=== PATIENT | male | born 1960 | race Two or more races ===

== ENCOUNTER 2019-10-01 14:14 | Day surgery (SDC) | payer MEDICAID ==
[2019-10-01] VITALS (7 sets, daily range): BP systolic 121–134; BP diastolic 53–87
[~2019-10-01] VITALS: Ht 180.3 cm; Wt 97.7 kg
[~2019-10-01 14:14] MED LIST: GABA-532 PO; METO-384 PO; NOR5T PO; OXYC-145 PO
[2019-10-01] MEDS ORDERED: ceFAZolin 2gm in dextrose, iso 50 ML IV ONE (14:35)
[2019-10-01] MEDS ORDERED: normal saline 1000ml 1,000 ML IV SCH (14:35)
[2019-10-01] MEDS ORDERED: SIMV-42 PO (15:03)
[2019-10-01] MEDS ORDERED: AMIT10TA6 PO (15:03)
[2019-10-01] MEDS ORDERED: ASPI81TA52 PO (15:03)
[2019-10-01] MEDS ORDERED: LISI40TA4 PO (15:03)
[2019-10-01] MEDS ORDERED: BACL20TA PO (15:03)
[2019-10-01] MEDS ORDERED: LIDOcaine 1% W/epiNEPHrine 1:100,000 20ml vial ONE ×2 (15:33→16:57)
[2019-10-01] MEDS ORDERED: ceFAZolin 1000mg inj ONE (15:33)
[2019-10-01] MEDS ORDERED: fentaNYL/PF 50MCG/1 ML 2ML syringe ONE ×2 (15:33→16:34)
[2019-10-01] MEDS ORDERED: midazolam 2 mg/2 ml injection ONE ×4 (15:33→16:57)
== END 2019-10-01 19:45 | disposition home or self-care (01) ==
LOC: SSTAY O 14:14
PROVIDERS: ATTEND Internal Medicine Interventional Cardiology
DX: Z45.010 Encounter for checking and testing of cardiac pacemaker pulse generator [battery] (principal); I10 Essential (primary) hypertension; G89.29 Other chronic pain; I44.1 Atrioventricular block, second degree; Z79.899 Other long term (current) drug therapy; Z79.82 Long term (current) use of aspirin
CPT/HCPCS: 33228; 33234; 93005; C1785; C1898; J0690; J2250; J3010; 33216; 99152; 99153; A4565; A4620; A6258

== ENCOUNTER 2021-07-28 11:32 | Day surgery (SDC) | payer MEDICAID ==
[~2021-07-28] VITALS: Ht 180.3 cm; Wt 98.3 kg
[2021-07-28] VITALS (13 sets, daily range): BP systolic 117–184; BP diastolic 72–108
[~2021-07-28 11:32] MED LIST changes: +AMIT10TA6 PO; +ASPI81TA52 PO; +BACL20TA PO; -GABA-532 PO; +LIDOcaine 1% W/epiNEPHrine 1:100,000 20ml vial ONE; +LISI40TA13 PO; -METO-384 PO; -NOR5T PO; +SIMV-42 PO; +ceFAZolin 1000mg inj ONE; +fentaNYL/PF 50MCG/1 ML 2ML syringe ONE; +midazolam 1 mg/ML 2ml injection ONE
[2021-07-28] MEDS ORDERED: OXYC1TAB15 PO (12:20)
[2021-07-28] MEDS ORDERED: CHLO25TA10 PO (12:21)
[2021-07-28] MEDS ORDERED: ATOR20TA PO (12:22)
[2021-07-28] MEDS ORDERED: AMLO5TAB PO (12:22)
[2021-07-28 12:38] LABS: BASOPHILS # (AUTO) 0.1 X10'3 (0-0.2); BASOPHILS % (AUTO) 0.9 % (0-1); EOSINOPHILS # (AUTO) 0.1 X10'3 (0-0.9); EOSINOPHILS % (AUTO) 1.6 % (0-6); HEMATOCRIT 46.3 % (42.0-52.0); HEMOGLOBIN 16.1 g/dl (14.0-17.9); LYMPHOCYTES # (AUTO) 2.6 X10'3 (1.1-4.8); LYMPHOCYTES % (AUTO) 46.2 % (21-51); MEAN CORPUSCULAR HGB CONC 34.9 g/dL (33.0-36.5); MEAN CORPUSCULAR VOLUME 88.9 FL (78-98); MEAN PLATELET VOLUME 8.9 FL (7.4-10.4); MONOCYTES # (AUTO) 0.5 X10'3 (0-0.9); MONOCYTES % (AUTO) 8.8 % (2-12); NEUTROPHILS # (AUTO) 2.4 X10'3 (1.8-7.7); NEUTROPHILS % (AUTO) 42.5 % (42-75); PLATELET COUNT 234 X10'3 (140-440); RED CELL DISTRIBUTION WIDTH 12.7 % (11.5-14.5); WHITE BLOOD COUNT 5.6 X10'3 (4.5-11.0)
[2021-07-28 12:40] LABS: ALBUMIN 3.8 G/DL (3.4-5.0); ANION GAP 5 (8-16); BLOOD UREA NITROGEN 9 MG/DL (7-18); BUN/CREATININE RATIO 9.4 (5.4-32.0); CALCIUM 8.9 MG/DL (8.5-10.1); CHLORIDE 106 MMOL/L (99-107); CREATININE 0.96 MG/DL (0.60-1.10); GLUCOSE 123 MG/DL (70-104); POTASSIUM 4.1 MMOL/L (3.5-5.1); SODIUM 140 MMOL/L (135-145); TOTAL CARBON DIOXIDE 28.7 MMOL/L (24-32); eGFR 80 ML/MIN
[2021-07-28 12:45] LABS: APTT 28 SECONDS (22-32)
[2021-07-28] MEDS ORDERED: normal saline 1000ml 1,000 ML IV SCH (13:25)
[2021-07-28] MEDS ORDERED: ceFAZolin inj. 2,000 MG in dextrose 5%-water 100 ML IV ONE (13:30)
[2021-07-28] MEDS ORDERED: ceFAZolin 1000mg inj ONE (15:23)
[2021-07-28] MEDS ORDERED: HYDROcodone/acetaminophen 5mg/325mg tablet PO PRN (16:55)
[2021-07-28] MEDS ORDERED: HYDROcodone/acetaminophen 10/325mg tab PO PRN (16:55)
[2021-07-28] MEDS ORDERED: LORazepam 1 MG tablet PO PRN (16:55)
== END 2021-07-28 19:30 | disposition home or self-care (01) ==
LOC: SSTAY O 11:32
PROVIDERS: ATTEND Student in an Organized Health Care Education/Training Program
DX: T82.120A Displacement of cardiac electrode, initial encounter (principal); I10 Essential (primary) hypertension; G89.29 Other chronic pain; I05.9 Rheumatic mitral valve disease, unspecified; Z79.899 Other long term (current) drug therapy; Z79.01 Long term (current) use of anticoagulants; Y83.8 Other surgical procedures as the cause of abnormal reaction of the patient, or of later complication, without mention of misadventure at the time of the procedure; Y92.89 Other specified places as the place of occurrence of the external cause
CPT/HCPCS: 33217; 33235; 36415; 80048; 85025; 85610; 85730; 93005; 99152; 99153; C1898; J0690; J2250; J3010; J3490; J7030; 33234; A4565; A4620; A6258; C1786